=== PATIENT | female | born 1945 | race Caucasian/White ===

== ENCOUNTER → 2016-10-04 | Outpatient (CLI) | payer MEDICARE, OTHER ==
[~2016-10-04] MED LIST: ASPIRIN81 M2 PO; COREG12.5 MG PO; DAYPRO600 M1 PO; DEXILANT60 MG PO; DIOVAN80 M1 PO; ELIQUIS5 MG PO; HYDROCHLOROTHIA25 MG PO; MAG-OX 400400 M1 PO; MULTI VITAMIN1 EACH PO; NITROFURANTOIN100 M4 PO; PANTOPRAZOLE SO40 MG PO; REGLAN10 MG PO; SERTRALINE HCL100 MG PO; ZOLOFT PO
--- NOTE | ~2016-10-04 | HM ---
Unit #: [id number] #: [id number] Patient: VENESSA CORDOBA [id number] [address] [address] [id number] O MR#: [id number] NAME: VENESSA CORDOBA. : 1945 SEX: F STUDY DATE/TIME: UNIT: CNIV ROOM: STUDY DESCRIPTION: Holter monitor Attending Physician: Negrito Bright M.D. Referring Physician: Negrito Bright M.D. Primary Care Physician: Donya Byrne Aprn CARDIOLOGY REPORT EXAM Holter monitor. DATE APPLIED October 04, 2016. DATE SCANNED October 10, 2016. ORDERED BY Negrito Bright M.D. READ BY Negrito Bright M.D. INDICATION Atrial flutter. SUMMARY The patient was monitored for 24 hours. The rhythm was sinus. A total of 128,133 QRS complexes were analyzed. The average heart rate was 89 beats per minute. Minimum heart rate of 65 beats per minute occurred at approximately 2:30 p.m. The maximum heart rate of 128 beats per minute occurred at approximately 1:40 a.m. There were no pauses. A review of the heart rate histogram showed tachycardic spikes up to 120 but no sustained rate up in the 120 range. SUPRAVENTRICULAR ECTOPY: There were 5 isolated beats with no runs. VENTRICULAR ECTOPY: There were 222 isolated beats with no runs. SYMPTOMS: None. PATIENT ACTIVATED EVENTS: None. IMPRESSION 1. Holter monitor showed no significant atrial or ventricular ectopy. 2. No atrial flutter or atrial fibrillation was noted. 3. If anticoagulation is in place and sinus rhythm has been maintained, may consider discontinuation of anticoagulation. Unit #: [id number] #: [id number] Patient: VENESSA CORDOBA Dictated by... Alicia Figueroa/vernon TD: 10/11/2016 14:35 JOB #: [id number] CARDIOLOGY REPORT Page 1 of 1 X Negrito Bright MD HOLTER MONITOR REPORT
--- NOTE | ~2016-10-04 | HM ---
Unit #: [id number] #: [id number] Patient: VENESSA CORDOBA [id number] [address] [address] [id number] O MR#: [id number] NAME: VENESSA CORDOBA. : 1945 SEX: F STUDY DATE/TIME: 10/04/2016 UNIT: CNIV ROOM: STUDY DESCRIPTION: Attending Physician: Negrito Bright M.D. Referring Physician: Negrito Bright M.D. Primary Care Physician: Donya Byrne Aprn CARDIOLOGY REPORT EXAM 24-hour Holter monitor. DATE APPLIED 10/04/2016 DATE SCANNED 10/09/2016 [place] [facility] [place] BY Negrito Bright M.D. REASON FOR STUDY Atrial flutter. FINDINGS 1. Basic rhythm is normal sinus rhythm. Total beats 120,133. Average heart rate 89 per minute. Heart rate varies from 65 per minute at 1437 to 128 per minute at 1:42. 2. Two hundred and twenty two isolated PVCs and 10 ventricular couplets noted. 3. Five isolated PACs and one atrial couplet noted. 4. No high-grade AV blocks noted. 5. No diary with the symptoms available. Dictated by... Alicia Velez/hakeem TD: 10/31/2016 17:05 JOB #: [id number] Unit #: [id number] #: [id number] Patient: VENESSA CORDOBA CARDIOLOGY REPORT Page 1 of 1 X Lorelei Vaughn MD HOLTER MONITOR REPORT
--- NOTE | ~2016-10-04 | US37 ---
[facility] A Service of [facility] RADIOLOGY TEXT RESULTS PATIENT: VENESSA CORDOBA LOCATION: CNIV : 47 UNIT #: [id number] AGE: [address]: Negrito Bright MD SEX: F ORDER DR: [id number] [facility]. [place], [place] [address] [id number] O MR#: [id number] Acc #: [id number] NAME: VENESSA CORDOBA : 1945 SEX: F STUDY DATE/TIME: 10/04/2016 13:05 UNIT: CNIV ROOM: STUDY DESCRIPTION: US Carotid W/Doppler Bilateral Attending Physician: Negrito Bright M.D. Referring Physician: Negrito Bright M.D. Ordering Physician: Negrito Bright M.D. Primary Care Physician: Donya Byrne Aprn MEDICAL IMAGING REPORT This report is preliminary unless electronic signature is present EXAM Bilateral carotid duplex HISTORY Carotid bruits FINDINGS Duplex imaging of the carotid arteries was performed. The right common carotid artery is patent. Internal and external carotid arteries are patent with no significant plaque. Velocity in the right common carotid is 69, internal is 65 and external is 59 cm/sec. Right IC/CC ratio is 0.9. On the left side, the common carotid artery is patent. Internal and external carotid arteries are patent with no plaque. Velocity in the left common carotid is 73, internal is 122 and external is 53 cm/sec. Left IC/CC ratio is 1.7. Antegrade flow is seen in the right and left vertebral arteries. IMPRESSION No plaque or stenosis is seen in the right or left internal carotid arteries or external carotid arteries. Antegrade flow is seen in the right and left vertebral arteries. Dictated by... Ji Thomas M.D. THIS IS AN ELECTRONICALLY VERIFIED REPORT Ji Thomas M.D. at 10/05/2016 5:03 PM [facility] A Service of [facility] RADIOLOGY TEXT RESULTS PATIENT: VENESSA CORDOBA LOCATION: CNIV : 47 UNIT #: [id number] AGE: [address]: Negrito Bright MD SEX: F ORDER DR: Felice TD: 10/04/2016 20:37 JOB #: [id number] MEDICAL IMAGING REPORT Page 1 of 1 COPY
[2016-10-04 13:39] LABS: ALBUMIN SERUM 3.7 g/dL (3.5-5.0); BILIRUBIN,TOTAL 0.9 mg/dL (0.2-2.0); BUN/CREATININE RATIO 24.44; CALCIUM SERUM 9.5 mg/dL (8.4-10.2); CREATININE SERUM 0.9 mg/dL (0.6-1.4); GLOM FILT RATE Estimated 64.8 mL/min (>60); MAGNESIUM 1.6 mg/dL (1.6-3.0); POTASSIUM 3.8 mmol/L (3.5-5.1); PROTEIN TOTAL SERUM 7.2 g/dL (6.0-8.3)
== END | disposition home or self-care (01) ==
LOC: CNIV 09-27 14:00 → CLAB 12:18 → CNIV 12:18
DX: I48.92 Unspecified atrial flutter (principal); R09.89 Other specified symptoms and signs involving the circulatory and respiratory systems
CPT/HCPCS: 36415; 80053; 80061; 83735; 93225; 93226; 93880

== ENCOUNTER → 2016-11-29 | Outpatient (CLI) | payer MEDICARE, OTHER | END | disposition home or self-care (01) | LOC: CECH 11-22 10:45 | DX: R06.02 Shortness of breath (principal); I50.9 Heart failure, unspecified; I50.30 Unspecified diastolic (congestive) heart failure; I51.7 Cardiomegaly; I36.1 Nonrheumatic tricuspid (valve) insufficiency | CPT/HCPCS: 93306 ==